=== PATIENT | female | born 2000 | race African-American/Black ===

== ENCOUNTER 2021-10-30 20:40 | Emergency (ER) | payer BC, SELFPAY ==
--- NOTE | ~2021-10-30 | CT_ITS ---
EXAMINATION: CT abdomen pelvis w con INDICATION: Abdominal pain TECHNIQUE: Computed tomographic images of the abdomen and pelvis were obtained after the administrati on of 100 cc of Omnipaque 350 intravenous contrast. The dose-length product (DLP) was 256.18 mGy-cm. Automated exposure control and iterative reconstruction technique were employed. COMPARISON: None available FINDINGS: Minimal dependent atelectasis is present in the lung bases. The heart size is normal. The l iver, spleen, pancreas, gallbladder, and adrenal glands are normal. The kidneys are unremarkable. No pathologically enlarged abdominal or pelvic lymph nodes are identified. There is no free intraperiton eal gas or evidence of bowel obstruction. The appendix is normal. There is a 1.3 cm left Bartholin's gland cyst. An IUD is present in expected position. There is an enhancing corpus luteum of the right ovary. A trace volume of free fluid in the pelvis is likely physiologic. IMPRESSION: 1. No CT correlate for the patient's symptoms. Reviewed, dictated and finalized at location A. RONMENTAL SERVICES DIRECTOR
--- NOTE | ~2021-10-30 | XR_ITS ---
EXAMINATION: XR chest 1V portable INDICATION: Chest pain and shortness of breath TECHNIQUE: Portable AP chest at 2318 hours COMPARISON: None available FINDINGS: The lungs are free of acute opacities. There is no pleural effusion or pneumothorax. The ca rdiomediastinal silhouette is normal. The visualized bones and soft tissues are unremarkable. IMPRESSION: 1. No acute cardiopulmonary abnormality. Reviewed, dictated and finalized at location A. NCE WHE[employer] S[employer] DRI[employer]ER
[2021-10-30 20:42] VITALS: BP 138/85; PULSE 59; RESP 16; TEMP 36.4; O2SAT 100
[2021-10-30 22:50] VITALS: BP 130/78; PULSE 64; RESP 16; O2SAT 100
--- NOTE | 2021-10-30 23:05 | ECG_ITS ---
Measurements Intervals [place] Rate: 60 P: 46 SD: 132 QRS: 52 QRSD: 87 T: 30 QT: 428 QTc: 428 Interpretive Statements SINUS RHYTHM BASELINE ARTIFACT- I, II, III, AVR, AVL, AVF, V1-V6 BORDERLINE ECG Electronically Signed On 10-31-2021 7:57:29 RETAIL MAINTENANCE TECHNICIAN by Cliff Muñoz D.O.
[2021-10-30 23:33] LABS: Basophils Percent Auto 0.6 % (0.2-1.2); Eosinophils Absolute Auto 0.1 K/mm3 (0-0.3); Eosinophils Percent Auto 0.9 % (0-4.4); Hematocrit 39.2 % (37.0-47.0); Immature Granulocyte Absolute 0.01 K/mm3 (0.00-0.031); Immature Granulocyte Percent A 0.2 % (0-0.5); Lymphocytes Absolute Auto 3.54 K/mm3 (0.9-3.2); Lymphocytes Percent Auto 55.7 % (18.3-44.2); Mean Corpuscular HGB Conc 33.2 g/dl (32-36); Mean Corpuscular Volume 93.3 fl (80-100); Mean Platelet Volume 9.9 fl (7.4-10.4); Monocytes Absolute Auto 0.5 K/mm3 (0.1-0.6); Monocytes Percent Auto 7.5 % (2.6-8.5); Neutrophils Absolute Auto 2.2 K/mm3 (1.3-6.7); Neutrophils Percent Auto 35.1 % (45.5-73.1); Platelet Count Result 278 k/mm3 (150-375); White Blood Count 6.4 K/mm3 (4.5-10.0)
[2021-10-30 23:36] VITALS: BP 136/74; PULSE 74; RESP 16; O2SAT 99
[2021-10-30 23:43] LABS: INR 0.9
[2021-10-30 23:44] LABS: Partial Thromboplastin Time 26.7 SECONDS (22.3-36.8)
[2021-10-30 23:46] LABS: Alanine Aminotransferase 19 U/L (4-35); Albumin Level 4.9 g/dL (3.5-5.1); Alkaline Phosphatase 61 U/L (38-126); Anion Gap 12 mmol/L (8-16); Aspartate Amino Transferase 30 U/L (14-36); Bilirubin,Total 0.6 mg/dL (0.2-1.3); Blood Urea Nitrogen 7 mg/dL (7-17); Calcium 9.5 mg/dL (8.4-10.2); Carbon Dioxide 23 mmol/L (22-30); Chloride 102 mmol/L (98-107); Estimated CRCL calculation 90 ml/min; Estimated Glomerular Filt Rate > 60; Glucose 85 mg/dL (65-110); Lipase 77 U/L (23-300); Magnesium 1.7 mg/dL (1.6-2.3); Potassium 3.8 mmol/L (3.4-5.0); Sodium 137 mmol/L (137-145)
[2021-10-30 23:47] LABS: Lactic Acid Reflex 1.3 mmol/L (0.7-2.1)
[2021-10-30 23:51] LABS: Add Urine Microscopic? YES; Appearance Urine Cloudy (Clear); Bacteria Urine Trace /hpf; Bilirubin Urine Negative (Negative); Blood Urine Negative (Negative); Color Urine Yellow (Yellow); Glucose Urine UA Negative (Negative); Ketones Urine 1+ mg/dL (Negative); Leukocyte Esterase Ur Trace LEU/UL (Negative); Mucus Urine Few /lpf; Nitrate Urine Negative (Negative); Protein Urine Negative (Negative); Specific Grav Ur 1.016 (1.001-1.035); Squamous Epithelial Cell Urine Many /hpf (Few); Urobilinogen Urine Negative mg/dL (<2.0); WBC Urine 0-3 /hpf
[2021-10-30 23:58] LABS: Troponin I < 0.012 ng/mL (0.000-0.034)
--- NOTE | 2021-10-31 00:04 | ED.GENADULT ---
HPI - General Adult General Chief complaint: Chest Pain Stated complaint: Chest pain, sob Time Seen by Provider: 10/30/21 22:59 History of Present Illness HPI narrative: Patient 19-year-old female presents the emergency department with chief complaint of chest pain. Patient reports has been having discomfort in her chest for some time and reports that it is a sharp type pain its more just adjacent to the sternum the patient states is worse with inspiration and improved with rest. The patient also reports has been having discomfort in her abdomen reports that it is uncomfortable whenever she palpates on her abdomen the patient denies vomiting denies diarrhea reports no prior surgical history. Related Data Allergies Allergy/AdvReac Type Severity Reaction Status Date / Time No Known Allergies Allergy Verified 10/31/21 00:49 Review of Systems Review of Systems: A 10 system review of systems was completed on the patient and is negative except for what is stated in the HPI. Nursing and ancillary documentation was reviewed. Exam Narrative: GENERAL: Well-appearing, well-nourished, and in no acute distress. HEAD: Normocephalic, atraumatic. EYES: PERRLA and EOMI. ENT: Nares clear, no rhinorrhea or epistaxis. Mucous membranes moist. NECK: Supple. CHEST: Clear to auscultation. No respiratory distress. Chest wall is tender to palpation HEART: Regular rate and rhythm. No murmur heard. Normal peripheral pulses. ABDOMEN: Soft, diffusely tender to palpation, nondistended, normal active bowel sounds. EXTREMITIES: Normal range of motion. No edema. SKIN: Warm, dry, no rash. NEURO: No focal deficits. Alert and oriented x3. PSYCH: Normal mood and affect. Course Course Emergency Course: Chest x-ray shows no evidence of focal abnormalities EKG is sinus rhythm rate of [address] elevation or ST depression CT scan showed no evidence of acute abnormality Vital Signs Vital signs: Vital Signs Temperature 36.4 C L 10/30/21 20:42 Pulse Rate 59 L 10/30/21 20:42 Respiratory Rate 16 10/30/21 20:42 Blood Pressure 138/85 10/30/21 20:42 Pulse Oximetry 100 10/30/21 20:42 Temperature 36.4 C L 10/30/21 20:42 Pulse Rate 74 10/30/21 23:36 Respiratory Rate 16 10/30/21 23:36 Blood Pressure 136/74 10/30/21 23:36 Pulse Oximetry 99 10/30/21 23:36 Medical Decision Making Vital Signs Vital Signs: Vital Signs Temperature 36.4 C L 10/30/21 20:42 Pulse Rate 59 L 10/30/21 20:42 Respiratory Rate 16 10/30/21 20:42 Blood Pressure 138/85 10/30/21 20:42 Pulse Oximetry 100 10/30/21 20:42 Temperature 36.4 C L 10/30/21 20:42 Pulse Rate 74 10/30/21 23:36 Respiratory Rate 16 10/30/21 23:36 Blood Pressure 136/74 10/30/21 23:36 Pulse Oximetry 99 10/30/21 23:36 Lab Data Result diagrams: 10/30/21 23:29 10/30/21 23:29 Labs: Lab Results 10/30/21 10/30/21 10/30/21 Range/Units 23:29 23:29 23:29 WBC 6.4 (4.5-10.0) K/mm3 RBC 4.20 (4.2-5.4) M/mm3 Hgb 13.0 (12.0-15.0) g/dL Hct 39.2 (37.0-47.0) % MCV 93.3 (80-100) fl MCH 31.0 (26-34) pg MCHC 33.2 (32-36) g/dl RDW 12.0 (11.5-14.5) % Plt Count 278 (150-375) k/mm3 MPV 9.9 (7.4-10.4) fl Immature Gran % (Auto) 0.2 (0-0.5) % Neut % (Auto) 35.1 L (45.5-73.1) % Lymph % (Auto) 55.7 H (18.3-44.2) % [place] % (Auto) 7.5 (2.6-8.5) % Eos % (Auto) 0.9 (0-4.4) % Baso % (Auto) 0.6 (0.2-1.2) % Lymph # (Auto) 3.54 H (0.9-3.2) K/mm3 [place] # (Auto) 0.5 (0.1-0.6) K/mm3 Eos # (Auto) 0.1 (0-0.3) K/mm3 Baso # (Auto) 0.0 (0.0-0.1) K/mm3 Abs Immat Gran (auto) 0.01 (0.00-0.031) K/mm3 Absolute Neuts (auto) 2.2 (1.3-6.7) K/mm3 Absolute Nucleated RBC 0.0 (0.0-0.012) K/mm3 Nucleated RBC % 0.0 (0.0-0.2) % PT 12.0 (11.1-14.7) Seconds INR 0.9 APTT 26.7 (22.3-36.8) SECONDS Sodium 137 (137-145) mmol/L [place]
[2021-10-31] MEDS: CIPROFLOXACIN 500 MG TAB PO (00:49)
[2021-10-31] MEDS: metroNIDAZOLE 250 MG TABLET 500 MG PO (00:50)
== END 2021-10-31 02:06 | disposition home or self-care (01) ==
PROVIDERS: Emergency Provider Emergency Medicine
DX: R07.89 Other chest pain (principal); R10.84 Generalized abdominal pain
CPT/HCPCS: 36415; 71045; 74177; 80053; 81001; 81025; 83605; 83690; 83735; 84484; 85025; 85610; 85730; 93005; 99284; A9270; Q9967